=== PATIENT | male | born 1995 | race African-American/Black ===

== ENCOUNTER 2020-08-10 18:12 | Emergency (ER) | payer MEDICARE, MEDICAID ==
[~2020-08-10] VITALS: Ht 180.3 cm; Wt 62.0 kg
[2020-08-10] MEDS ORDERED: TETRACAINE 0.5% OPHTH DROPS 4ML RIGHTEYE ONE (21:30)
[2020-08-10] MEDS ORDERED: FLUORESCEIN SODIUM 1MG/STRIP RIGHTEYE ONE (21:30)
[2020-08-10 22:10] VITALS: BP 125/75
== END 2020-08-10 22:25 | disposition home or self-care (01) ==
LOC: ER 18:12
DX: H10.31 Unspecified acute conjunctivitis, right eye (principal)
CPT/HCPCS: 99283

== ENCOUNTER 2021-02-23 15:32 | Emergency (ER) | payer MEDICARE, MEDICAID ==
[~2021-02-23] VITALS: Ht 180.3 cm; Wt 75.0 kg
[2021-02-23] MEDS ORDERED: FLUORESCEIN SODIUM 1MG/STRIP BOTHEYE ONE (16:00)
[2021-02-23] MEDS ORDERED: TETRACAINE 0.5% OPHTH DROPS 4ML BOTHEYE ONE (16:00)
[2021-02-23] MEDS ORDERED: FLUORESCEIN SODIUM 1MG/STRIP LEFTEYE ONE (17:00)
[2021-02-23] MEDS ORDERED: OFLO5DRO3 LEFTEYE (17:12)
[2021-02-23 17:46] VITALS: BP 133/88
== END 2021-02-23 17:50 | disposition home or self-care (01) ==
LOC: ER 15:32
DX: S05.02XA Injury of conjunctiva and corneal abrasion without foreign body, left eye, initial encounter (principal); X58.XXXA Exposure to other specified factors, initial encounter; Y93.89 Activity, other specified; Y92.010 Kitchen of single-family (private) house as the place of occurrence of the external cause
CPT/HCPCS: 99284

== ENCOUNTER 2022-04-13 21:25 | Emergency (ER) | payer MEDICARE, MEDICAID ==
[~2022-04-13] VITALS: Ht 177.8 cm; Wt 55.0 kg
[~2022-04-13 21:25] MED LIST: OFLO5DRO3 LEFTEYE
[2022-04-13 22:08] LABS: BASOPHILS % 0.8 % (0.0-2.0); EOSINOPHILS % 1.8 % (0.0-5.0); HEMATOCRIT. 49.6 % (42.0-52.0); HEMOGLOBIN. 16.7 g/dL (14.0-18.0); LYMPHOCYTES % 29.6 % (20.0-50.0); MEAN CORPUSCULAR HEMOGLOBIN 32.6 pg (28.0-32.0); MEAN CORPUSCULAR VOLUME 96.7 fL (80.0-94.0); MEAN PLATELET VOLUME 8.3 fl (7.4-10.4); MONOCYTES % 7.9 % (2.0-8.0); NEUTROPHILS % 59.9 % (40.0-76.0); PLATELET 351 x1000/uL (130-400); RED BLOOD CELL COUNT 5.13 mill/uL (4.7-6.1); RED CELL DISTRIBUTION WIDTH 15.8 % (11.6-14.6)
[2022-04-13 22:15] LABS: CHLORIDE 111 mEq/L (98-107)
[2022-04-13 22:26] LABS: ETHANOL BLOOD 261 mg/dL
[2022-04-14] MEDS: FLUOXETINE HCL 10 MG CAPSULE PO SCH (09:56)
[2022-04-14 22:29] LABS: *AMPHETAMINES SCREEN URINE NEGATIVE (NEGATIVE); *BARBITURATES SCREEN URINE NEGATIVE (NEGATIVE); *BENZODIAZEPINES SCREEN URINE NEGATIVE (NEGATIVE); *COCAINE SCREEN URINE NEGATIVE (NEGATIVE); CANNABINOID URINE SCREEN PRESUMTIVE POSITIVE (NEGATIVE); METHADONE URINE SCREEN NEGATIVE (NEGATIVE); OPIATES URINE SCREEN NEGATIVE (NEGATIVE); PHENCYCLIDINE URINE SCREEN NEGATIVE (NEGATIVE)
[2022-04-15] MEDS: FLUOXETINE HCL 10 MG CAPSULE PO SCH (09:09)
[2022-04-15 12:39] VITALS: BP 120/68
== END 2022-04-15 12:41 | disposition home or self-care (01) ==
LOC: ER 21:25
DX: R45.851 Suicidal ideations (principal)
CPT/HCPCS: 36415; 80053; 80305; 80307; 80320; 80329; 85025; 93005; 99285; G0480

== ENCOUNTER 2023-05-27 01:50 | Emergency (ER) | payer MEDICARE, MEDICAID ==
[~2023-05-27] VITALS: Ht 180.3 cm; Wt 54.0 kg
[~2023-05-27 01:50] MED LIST changes: +OCUFLX LEFTEYE; -OFLO5DRO3 LEFTEYE
[2023-05-27 02:04] VITALS: BP 128/80; PULSE 94; RESP 18; TEMP 98.8; O2SAT 100
[2023-05-27 05:46] LABS: BASOPHILS % 0.4 % (0.0-2.0); EOSINOPHILS % 1.4 % (0.0-5.0); HEMATOCRIT. 34.9 % (42.0-52.0); HEMOGLOBIN. 11.7 g/dL (14.0-18.0); LYMPHOCYTES % 14.3 % (20.0-50.0); MEAN CORPUSCULAR HEMOGLOBIN 32.7 pg (28.0-32.0); MEAN CORPUSCULAR VOLUME 97.2 fL (80.0-94.0); MEAN PLATELET VOLUME 8.2 fl (7.4-10.4); MONOCYTES % 8.1 % (2.0-8.0); NEUTROPHILS % 75.8 % (40.0-76.0); PLATELET 337 x1000/uL (130-400); RED BLOOD CELL COUNT 3.59 mill/uL (4.7-6.1); RED CELL DISTRIBUTION WIDTH 15.3 % (11.6-14.6)
[2023-05-27 05:55] LABS: CHLORIDE 106 mEq/L (98-107)
[2023-05-27] MEDS ORDERED: CEPH500C2 PO (07:25)
[2023-05-27] MEDS ORDERED: SULF1TAB48 PO (07:25)
== END 2023-05-27 07:56 | disposition home or self-care (01) ==
LOC: ER 01:50
DX: R60.9 Edema, unspecified (principal); I49.9 Cardiac arrhythmia, unspecified
CPT/HCPCS: 36415; 71045; 80053; 83880; 84484; 85025; 93005; 99285

== ENCOUNTER 2023-10-10 19:46 | Emergency (ER) | payer MEDICARE, MEDICAID ==
[~2023-10-10] VITALS: Ht 180.3 cm; Wt 58.0 kg
[~2023-10-10 19:46] MED LIST changes: +CEPH500C2 PO; +SULF1TAB48 PO
[2023-10-10 20:46] VITALS: BP 99/78; PULSE 86; RESP 18; TEMP 98.4; O2SAT 100
[2023-10-10] MEDS ORDERED: FLUORESCEIN SODIUM 1MG/STRIP BOTHEYE ONE (21:45)
[2023-10-10] MEDS ORDERED: TETRACAINE 0.5% OPHTH DROPS 4ML BOTHEYE ONE (21:45)
[2023-10-10] MEDS ORDERED: FLUORESCEIN SODIUM 1MG/STRIP BOTHEYE NR (22:30)
[2023-10-10] MEDS ORDERED: TETRACAINE 0.5% OPHTH DROPS 4ML BOTHEYE NR (22:30)
[2023-10-10] MEDS ORDERED: CIPR3.5O LEFTEYE (23:05)
== END 2023-10-11 00:18 | disposition home or self-care (01) ==
LOC: ER 19:46
DX: H10.9 Unspecified conjunctivitis (principal); F19.90 Other psychoactive substance use, unspecified, uncomplicated; Z98.890 Other specified postprocedural states
CPT/HCPCS: 99283

== ENCOUNTER 2024-03-02 18:39 | Emergency (ER) | payer MEDICARE, MEDICAID ==
[~2024-03-02] VITALS: Ht 180.3 cm; Wt 56.0 kg
[~2024-03-02 18:39] MED LIST changes: +CIPR3.5O LEFTEYE
[2024-03-02 18:44] VITALS: O2SAT 99
[2024-03-02] MEDS ORDERED: ERYT1OIN6 RIGHTEYE (19:54)
[2024-03-02] MEDS ORDERED: SULF1TAB48 MT (19:54)
[2024-03-02 20:06] VITALS: BP 116/74; PULSE 74; RESP 16; TEMP 99
== END 2024-03-02 20:06 | disposition home or self-care (01) ==
LOC: ER 18:39
DX: H00.011 Hordeolum externum right upper eyelid (principal); L03.213 Periorbital cellulitis; F19.90 Other psychoactive substance use, unspecified, uncomplicated; Z98.890 Other specified postprocedural states
CPT/HCPCS: 99283

== ENCOUNTER 2025-06-09 13:34 | Emergency (ER) | payer MEDICARE, MEDICAID ==
[~2025-06-09] VITALS: Ht 180.3 cm; Wt 54.0 kg
[~2025-06-09 13:34] MED LIST changes: +ERYT1OIN6 RIGHTEYE; +SULF1TAB48 MT
[2025-06-09 13:39] VITALS: BP 115/74; TEMP 36.7; O2SAT 100
[2025-06-09 13:40] VITALS: PULSE 74; RESP 16; O2SAT 99
[2025-06-09] MEDS ORDERED: ERYT1OIN6 EACHEYE (14:05)
== END 2025-06-09 14:17 | disposition home or self-care (01) ==
LOC: ER 13:34
DX: H00.016 Hordeolum externum left eye, unspecified eyelid (principal); J45.909 Unspecified asthma, uncomplicated; F19.90 Other psychoactive substance use, unspecified, uncomplicated; Z79.899 Other long term (current) drug therapy; Z98.890 Other specified postprocedural states
CPT/HCPCS: 99283

== ENCOUNTER 2025-10-26 12:04 | Emergency (ER) | payer MEDICARE, MEDICAID ==
[~2025-10-26] VITALS: Ht 172.7 cm; Wt 70.0 kg
[~2025-10-26 12:04] MED LIST changes: +ERYT1OIN6 EACHEYE
[2025-10-26 12:30] VITALS: O2SAT 100
[2025-10-26] MEDS ORDERED: IBUP-1455 MT (16:30)
[2025-10-26] MEDS ORDERED: ACET-2708 MT (16:30)
[2025-10-26 16:46] VITALS: BP 114/72; PULSE 96; RESP 18; TEMP 36.7; O2SAT 100
[2025-10-26 17:42] LABS: INFLUENZA TYPE A Presumptive Negative (Pres. Neg.)
[2025-10-26 17:43] LABS: INFLUENZA TYPE B Presumptive Negative (Pres. Neg.)
== END 2025-10-26 16:50 | disposition home or self-care (01) ==
LOC: ER 12:04
DX: J06.9 Acute upper respiratory infection, unspecified (principal); F17.210 Nicotine dependence, cigarettes, uncomplicated; Z20.822 Contact with and (suspected) exposure to COVID-19
CPT/HCPCS: 71045; 87426; 87804; 99284